=== PATIENT | female | born 1955 | race Caucasian/White ===

== ENCOUNTER 2019-02-15 01:24 | Outpatient (CLI) | payer OTHER, SELFPAY ==
--- NOTE | 2019-02-15 08:00 | DI.MAMMO_ITS ---
SYMPTOM/DIAGNOSIS: SCREENING, Z12.31 MAMMOGRAMS: Mammograms were interpreted according to the usual protocol including computer analysis with CAD system, tomosynthesis and C view imaging. Comparison is made with prior examinations. Breast density, Category B. No suspicious masses or microcalcifications are seen. There is no definite evidence of malignancy. IMPRESSION: Negative mammogram. Routine screening is recommended. Category 1. MQSA ASSESSMENT OF FINDINGS: Negative. Category 1. Patient will receive a letter notifying them of these results. BI-RADS category B. There are scattered areas of fibroglandular density.
== END 2019-02-15 01:44 ==
PROVIDERS: PCP Internal Medicine; Visit Provider Obstetrics & Gynecology Gynecology
DX: Z12.31 Encounter for screening mammogram for malignant neoplasm of breast (principal)
CPT/HCPCS: 77063; 77067

== ENCOUNTER 2020-10-21 17:53 | Outpatient (REF) | payer OTHER, SELFPAY ==
[2020-10-24 16:30] LABS: Patient Race White; SARS-CoV-2 RNA Undetected (Undetected); SARS-CoV-2 Specimen Source Nasal
== END 2020-10-21 18:13 ==
LOC: NCHCN 17:53
PROVIDERS: PCP Internal Medicine; Visit Provider Nurse Practitioner Family
DX: Z11.59 Encounter for screening for other viral diseases (principal)
CPT/HCPCS: U0003

== ENCOUNTER 2021-04-02 02:27 | Outpatient (CLI) | payer OTHER, SELFPAY ==
--- NOTE | 2021-04-02 07:00 | DI.MAMMO_ITS ---
Exam(s) US BREAST RT COMPLETE MAMMO DIAGNOSTIC BI EXAM: MAMMO DIAGNOSTIC BI and U/S breast RT complete CLINICAL HISTORY: R breast pain, family hx breast cancer,n64.4,z80.3. TECHNIQUE: Craniocaudal and mediolateral oblique Full Field Digital Mammography views with Computer Aided Diagnosis followed by Tomosynthesis and right breast ultrasound. COMPARISON: Priors available for comparison. FINDINGS: Mammography/Tomosynthesis: Masses/Architectural Distortion: None seen. Microcalcifictions: No suspicious pleomorphic-type are seen. Skin Thickening/Nipple Retraction: None. Right breast US: Echotexture: Normal appearance of the glandular tissue. Shadowing: No suspicious foci. Cyst: None. Solid lesions: None seen. Ductal dilation: None. IMPRESSION: 1. No evidence of malignancy is noted. 2. Unless there is more urgent need, follow-up screening mammography is recommended, as per [employer] guidelines. 3. The findings were discussed with the patient on the date of the examination. BI-RADS Category 1 - Negative Breast Density - Category B - Scattered areas of fibroglandular density Breast density Category C or D implies that the patient has dense breast tissue. Dense breast tissue can make it harder to find cancer on a mammogram. Dense breast tissue is also associated with an incr eased risk of breast cancer. This information about the result of the mammogram report was provided to the patient to raise their awareness. Use this report when you speak with the patient about their risks for breast cancer, which includes their family history. At that time, you may recommend additional screening tests (Ultrasoun d or MRI) as these tests may add significant information. A negative radiographic report should not delay biopsy if a dominant or clinically suspicious mass is present. Up to ten percent of cancers are not identified on mammography. A negative report may reinforce clinical impression. Adenosis and dense breasts may obscure an underlying neoplasm. False positive reports average 6 to 10%. Patient will receive a letter notifying them of these results.
== END 2021-04-02 02:47 ==
PROVIDERS: PCP Internal Medicine; Visit Provider Nurse Practitioner Women's Health
DX: N64.4 Mastodynia (principal); Z80.3 Family history of malignant neoplasm of breast
CPT/HCPCS: 76642; 77062; 77066; G0279

== ENCOUNTER 2021-12-01 13:18 | Outpatient (REF) | payer OTHER, SELFPAY ==
[2021-12-03 15:55] LABS: COVID-19 RT-PCR UVMMC Result Positive (Negative)
== END 2021-12-01 13:19 | disposition home or self-care (01) ==
LOC: NCHCN 13:18
PROVIDERS: PCP Internal Medicine; Visit Provider Nurse Practitioner Family
DX: Z20.822 Contact with and (suspected) exposure to COVID-19 (principal)
CPT/HCPCS: U0003

== ENCOUNTER → 2022-10-28 02:59 | Outpatient (CLI) | payer OTHER, SELFPAY ==
--- NOTE | 2022-10-28 08:02 | DI.MAMMO_ITS ---
Exam(s) MAMMO SCREENING EXAM: MAMMO SCREENING CLINICAL HISTORY: screening. TECHNIQUE: Bilateral full field digital CC and MLO mammographic images were obtained with 3D tomosyn thesis and utilizing computer aided detection (CAD). COMPARISON: Prior mammograms were reviewed. FINDINGS: There has been no significant change in the appearance and distribution of the fibroglandular tissue. There are no new spiculated masses nor malignant appearing microcalcification groups. There is no significant architectural distortion nor skin thickening-retraction. IMPRESSION: No radiographic evidence of malignancy. BI-RADS Category 1 - Negative Breast Density - Category B - Scattered areas of fibroglandular density Breast density Category C or D implies that the patient has dense breast tissue. Dense breast tissue can make it harder to find cancer on a mammogram. Dense breast tissue is also associated with an incr eased risk of breast cancer. This information about the result of the mammogram report was provided to the patient to raise their awareness. Use this report when you speak with the patient about their risks for breast cancer, which includes their family history. At that time, you may recommend additional screening tests (Ultrasoun d or MRI) as these tests may add significant information. A negative radiographic report should not delay biopsy if a dominant or clinically suspicious mass is present. Up to ten percent of cancers are not identified on mammography. A negative report may reinforce clinical impression. Adenosis and dense breasts may obscure an underlying neoplasm. False positive reports average 6 to 10%. Patient will receive a letter notifying them of these results.
== END ==
PROVIDERS: PCP Internal Medicine; Visit Provider Nurse Practitioner Women's Health
DX: Z12.31 Encounter for screening mammogram for malignant neoplasm of breast (principal)
CPT/HCPCS: 77063; 77067

== ENCOUNTER → 2023-03-09 08:05 | Outpatient (BNVA) | payer MEDICARE, OTHER, SELFPAY | PROVIDERS: PCP Internal Medicine; Referring Provider Internal Medicine; Visit Provider Surgery | DX: Z12.11 Encounter for screening for malignant neoplasm of colon (principal); Z86.010 Personal history of colon polyps ==

== ENCOUNTER 2023-03-22 10:18 | Day surgery (SDC) | payer MEDICARE, OTHER, SELFPAY ==
[2023-03-22 11:00] VITALS: BP 141/87; PULSE 65; RESP 18; TEMP 36.2; O2SAT 97
[2023-03-22] MEDS: Lactated Ringers 1,000 ML 80 ML IV (11:34)
--- NOTE | 2023-03-22 11:42 | W.ANESPRE ---
General Info Date of Service Date Performed: 03/22/23 Height: 5 ft 4 in Weight: 82.4 kg Body Mass Index (BMI): 31.1 Surgical Procedure: Operation Date: 03/22/23 12:05 Proposed Procedure Side Surgeon p Colonoscopy Matias Glass MD Meds Allergies and Home Medications Allergies Allergy/AdvReac Type Severity Reaction Status Date / Time morphine AdvReac Mild NAUSEA Unverified 03/22/23 11:19 Home Medication Medication Instructions Recorded cholecalciferol (vitamin D3) 25 1 tab PO DAILY 12/07/16 mcg (1,000 unit) tablet multivitamin 1 ea PO DAILY 12/07/16 B12 PO 03/12/21 zinc gluconate 30 mg tablet 30 mg PO DAILY 03/12/21 bisacodyl 5 mg tablet,delayed 5 mg PO ONCE colonscopy bowel prep 03/09/23 release (Dulcolax (bisacodyl)) #4 tabs famotidine 20 mg tablet 20 mg PO DAILY PRN 03/09/23 polyethylene glycol 3350 17 238 g PO ONCE colonoscopy prep 03/09/23 gram/dose oral powder #238 grams mecobalamin (vitamin B12) 1,000 1,000 mcg PO DAILY 03/19/23 mcg chewable tablet (B12 Active) Current Visit Medications: Current Medications Generic Name Dose Route Start Last Admin Trade Name Saschaq PRN Reason Stop Dose Admin Ringer's Solution 1,000 mls @ 80 mls/hr 03/22/23 06:00 03/22/23 11:34 IV 04/18/23 23:59 80 mls/hr INFUSION PENNY Administration IV Miscellaneous Supplies 1 each 03/22/23 06:00 Iv Access IV 04/18/23 23:59 DIRECTED PENNY Sodium Chloride 0 ml 03/22/23 06:00 Normal Saline Flush 10 Ml Syr IV 04/18/23 23:59 PRN PRN Sodium Chloride 0 ml 03/22/23 06:00 Normal Saline 10 Ml Vial IJ 04/18/23 23:59 DIRECTED PRN Sterile Water 0 ml 03/22/23 06:00 Water,Injection,Sterile 10 Ml Vial IJ 04/18/23 23:59 DIRECTED PRN PFSH Active Problems Active Problems: Problem Status Onset Code Tubular adenoma ~12/07/16 D36.9 Cystocele Rectocele N81.6 Hyperlipidemia Vitamin D deficiency Appendectomy Colonoscopy - IV Sedation 12/07/16 Fracture, Open Treatment Vaginal hysterectomy Tubular adenoma of colon 12/07/16 D12.6 Surgical History Surgical History H/O bilateral salpingo-oophorectomy History of colonoscopy with polypectomy (~12/07/16) History of hysterectomy Tobacco Smoking/Tobacco Use Status: Never Alcohol Alcohol Intake: current Alcohol intake frequency: a few times a month Substance Use Substance use: Never Substance use type: does not use Prental History History 4 Para Hx # Term Pregnancies 4 Multiple births Hx # Pregnancies Ectopic pregnancies AB induced Hx Number of Living Children AB spontaneous Vital Signs and Lab Results Vital Signs Most Recent Vital Signs in EMR: Most Recent Vital Signs Temp Pulse Resp BP Pulse Ox 36.2 C L 65 18 141/87 H 97 03/22/23 11:00 03/22/23 11:00 03/22/23 11:00 03/22/23 11:00 03/22/23 11:00 Lab Results Blood Type / Crossmatch: No Data to Display Complete Blood Count: No Data to Display Complete Metabolic Panel: No Data to Display Liver Function Panel: No Data to Display Coagulation Panel: No Data to Display Cardiac Panel: No Data to Display Arterial Blood Gas: No Data to Display Venous Blood Gas: No Data to Display Pancreas Panel: No Data to Display Thyroid Panel: No Data to Display Infectious Disease: No Data to Display Blood Cultures: No Data to Display Toxicology Panel: No Data to Display Anesthesia Assessment and Plan Anesthesia History Personal History: No History of Anesthesia Complications Family History: No Family History of Anesthesia Complications Exercise Tolerance Exercise Tolerance: Metabolic Equivalents>4 Pertinent Negatives Pertinent Negatives: No Symptoms of GERD (occasional. med controlled) Cardiac & Pulmonary Exam Cardiac Exam: Normal S1/S2 Heart Sounds Pulmonary Exam: Clear Bilateral Breath Sounds Implantable Cardiac Device Does patient have a Pacemaker or an ICD?: No Airway Exam Known Difficult Airway: No Mallampati Class: 1 Mouth Opening: Normal (> 3cm) Thyromental Distance: Greater than 3 cm Neck Range of Motion: Full ROM Neck Circumference: Normal Teeth Condition: Normal Dentition ASA Classification ASA Score: ASA 2 Emergency Case?: No NPO Status NPO Status: NPO Clears >2 hours, Solids >8 hours Anesthesia Plan Resuscitation Status: Full Code Anesthesia Technique: General Anesthesia Airway Planned: Natural Airway Monitors Used: Standard Monitors
[2023-03-22 11:59] VITALS: BMI 31.1
--- NOTE | 2023-03-22 12:03 | W.COLOREPORT ---
Date of service: 03/22/23 Time of Service: 12:40 Colonoscopy Report Procedure Description: Procedures performed: 1. Colonoscopy with snare polypectomy x2 2. Abrasion/destruction/ablation of polyps x3 Preoperative diagnosis: Surveillance colonoscopy, colon polyps Postoperative diagnosis: Colon polyps, mild sigmoid diverticulosis Surgeon: Rafael Glass Anesthesia: Cb Indication for procedure: The patient is a 67-year-old woman who had her first colonoscopy 5 years ago. Adenomatous colon polyps were found and removed and she was recommended to have a 5-year surveillance. She has no symptoms. She does not have any family history of colon cancer. Findings: In the transverse colon a 5-7 mm sessile polyp was removed with hot snare technique. In the proximal rectum a small 3-5 mm sessile polyp was removed with hot snare technique. A couple of other scattered, small and flat 2-3 mm polyps were ablated with the tip of the hot snare. Minimal/mild scattered diverticular changes were noted in the sigmoid colon without any associated diverticulitis. Surveillance/follow-up recommendations: 3-5 years. Polyps or sessile serrated or villous histology then 3 years. Otherwise a 5-year follow-up should be acceptable. Complications: None Blood loss: Minimal Specimens:?? YES Quality of Prep:?? Good Procedure in detail: Written consent was obtained from the patient who was in agreement with the risks, benefits and indications of the procedure.? We went to the endoscopy suite and laid the patient in left lateral decubitus position.? Anesthesia was administered which was tolerated well.? A timeout was performed and when we are all in agreement we began the procedure. Digital rectal exam and visual examination was performed and within normal limits.? A well?lubricated colonoscope was advanced without difficulty all the way to the cecum identified by the ileocecal valve, and triangular folds and appendiceal orifice.?The scope was then slowly withdrawn.?? Retroflexion was performed in the rectum.? The findings/interventions are noted above. The scope was then removed and the patient tolerated the procedure well and was then taken back to the PACU in hemodynamically stable condition.
--- NOTE | 2023-03-22 12:22 | BOWEL_PTH ---
PATIENT: Lynette Mccurdy LOC: [facility] U#:[id number] AGE/SX: 67/F ROOM: RE03/22/[address]: Matias Glass : 1955 BED: DIS: 03/22/2023 SPEC #: [id number] RECD: 03/22/23 18:10 STATUS: GABRIELLA RE #: [id number] MARIPOSA: 03/22/23 12:[address]: Matias Glass DEPT: Surgical Specimen RECD BY: Farida Macedo ENTERED: 03/22/23 18:10 SP TYPE: Bowel OTHR DR: Sridhar Flanagan Tissues: 1 - BIOPSY BOWEL 2 - BIOPSY BOWEL Procedures: GROSS AND MICRO LEVEL 4 Comments: [id number]
[2023-03-22 12:47] VITALS: BP 124/74; PULSE 70; RESP 17; TEMP 36.2; O2SAT 97
--- NOTE | 2023-03-22 12:56 | W.ANESPOSTOP ---
Postoperative Evaluation Date, Time and Location Date Performed: 03/22/23 Time Performed: 12:56 Patient Location: Day Surgery Unit Vital Signs Most Recent Imported Vital Signs: Most Recent Vital Signs Temp Pulse Resp BP Pulse Ox 36.2 C L 70 17 124/74 97 03/22/23 12:47 03/22/23 12:47 03/22/23 12:47 03/22/23 12:47 03/22/23 12:47 Assessment Mental Status: Awake (Alert & Oriented to Patient Baseline) Airway and Respiratory Function: Patent airway with normal (patient baseline) respiratory exam Cardiovascular Function: Hemodynamically Stable Hydration Status: Adequately Hydrated Nausea & Vomiting: No Nausea or Vomiting Pain: Pt. Denies Any Pain Peripheral Nerve Block: Patient did not receive a nerve block
[2023-03-22 13:16] VITALS: BP 146/75; PULSE 59; RESP 18; TEMP 36.6; O2SAT 98
== END 2023-03-22 13:23 | disposition home or self-care (01) ==
PROVIDERS: PCP Internal Medicine; Visit Provider Student in an Organized Health Care Education/Training Program
PROC: 0DJD8ZZ Inspection of Lower Intestinal Tract, Via Natural or Artificial Opening Endoscopic (ICD-10-PCS; CPT 45378; principal; 2023-03-22 12:00)
DX: Z12.11 Encounter for screening for malignant neoplasm of colon (principal); K63.5 Polyp of colon; Z86.010 Personal history of colon polyps; K57.30 Diverticulosis of large intestine without perforation or abscess without bleeding
CPT/HCPCS: 45388; 45385; 88305

== ENCOUNTER 2024-12-27 03:14 | Outpatient (CLI) | payer MEDICARE, OTHER, SELFPAY ==
--- NOTE | 2024-12-27 08:45 | DI.MAMMO_ITS ---
Exam(s) MAMMO SCREENING EXAM: MAMMO SCREENING CLINICAL HISTORY: screening TECHNIQUE: Bilateral full field digital CC and MLO mammographic images were obtained with 3D tomosyn thesis and utilizing computer aided detection (CAD). COMPARISON: Available for comparison. FINDINGS: Masses/Architectural Distortion: None seen. Microcalcifications: No suspicious pleomorphic-type are seen. Skin Thickening/Nipple Retraction: None. IMPRESSION: 1. No significant interval change with no specific features of malignancy noted. 2. Unless there is more urgent need, screening mammography is recommended, as per [employer] guidelines. BI-RADS Category 1 - Negative Breast Density - Category B - Scattered areas of fibroglandular density Breast density category C or D implies that the patient has dense breast tissue. Dense breast tissue is very common and is not abnormal but dense breast tissue can make it harder to find cancer on a ma mmogram. Also, dense breast tissue may increase their breast cancer risk. This information about the result of the mammogram report was provided to the patient to raise their awareness. Use this report when you speak with the patient about their risks for breast cancer, which includes their family hist ory. At that time, you may recommend for more screening tests (Ultrasound or MRI) as they might be us eful based on their risk. A negative radiographic report should not delay biopsy if a dominant or clinically suspicious mass is present. Up to ten percent of cancers are not identified on mammography. A negative report may reinforce clinical impression. Adenosis and dense breasts may obscure an underlying neoplasm. False positive reports average 6 to 10%. Patient will receive a letter notifying them of these results.
== END 2024-12-27 03:34 ==
LOC: DI 03:14
PROVIDERS: PCP Internal Medicine; Visit Provider Nurse Practitioner Women's Health
DX: Z12.31 Encounter for screening mammogram for malignant neoplasm of breast (principal); R92.323 Mammographic fibroglandular density, bilateral breasts
CPT/HCPCS: 77063; 77067